=== PATIENT | male | born 1995 | race Caucasian/White ===

== ENCOUNTER 2018-11-04 12:42 | Emergency (ER) | payer BC ==
--- NOTE | 2018-11-04 15:01 | ED ---
Neck Pain - HPI Summary HPI Summary: Patient complains of right-sided neck pain and right-sided head pain 1.5 weeks denies trauma. Admits to sinus congestion, but states neck pain started before sinus congestion started. Denies fever, cough, CP, SOB, N/V/D, abdominal pain, change in urine, change in BM. Medical history is none. - History of Current Complaint Chief Complaint: EDNeckComplaint Stated Complaint: NECK PAIN,HEAD PAIN Time Seen by Provider: 11/04/18 14:41 Hx Obtained From: Patient Onset/Duration Of Injury/Symptoms: Weeks Mechanism Of Injury: No Known Trauma Timing: Constant Onset/Duration: Started weeks ago Severity Initially: Moderate Severity Currently: Moderate Pain Intensity: 7 Pain Scale Used: 0-10 Numeric Location: Discrete At: Character: Aching Aggravating Factors: Movement Alleviating Factors: OTC Meds Associated Signs & Symptoms: Positive: Negative - Allergies/Home Medications Allergies/Adverse Reactions: Allergies Allergy/AdvReac Type Severity Reaction Status Date / Time No Known Allergies Allergy Verified 11/04/18 14:31 PMH/Surg Hx/FS Hx/Imm Hx Endocrine/Hematology History: Denies: Hx Anticoagulant Therapy Cardiovascular History: Denies: Hx Pacemaker/ICD History: Denies: Hx Dialysis Sensory History: Denies: Hx Legally Blind Opthamlomology History: Denies: Hx Eye Prosthesis EENT History: Denies: Hx Deafness Neurological History: Denies: Hx Dementia Psychiatric History: Denies: Hx Autism Infectious Disease History: No Infectious Disease History: Denies: Traveled Outside the [place] in Last 30 Days - Family History Known Family History: Positive: Unknown - Social History Alcohol Use: Occasionally Substance Use Type: Reports: None Smoking Status (MU): Never Smoked Tobacco Review of Systems Constitutional: Negative Eyes: Negative ENT: Negative Cardiovascular: Negative Respiratory: Negative Gastrointestinal: Negative Musculoskeletal: Other Skin: Negative Positive: Headache Psychological: Normal All Other Systems Reviewed And Are Negative: Yes Physical Exam - Summary Physical Exam Summary: Neck supple. Neuro exam normal. Tenderness to palpation along right side sternocleidomastoid muscle. Triage Information Reviewed: Yes Vital Signs On Initial Exam: Initial Vitals Temp Pulse Resp BP Pulse Ox 98.6 F 53 18 142/88 99 11/04/18 12:45 11/04/18 12:45 11/04/18 12:45 11/04/18 12:45 11/04/18 12:45 Vital Signs Reviewed: Yes Appearance: Positive: Well-Appearing Skin: Positive: Warm Head/Face: Positive: Normal Head/Face Inspection Eyes: Positive: Normal ENT: Positive: Normal ENT inspection Neck: Positive: Supple Respiratory/Lung Sounds: Positive: Clear to Auscultation Cardiovascular: Positive: Normal Abdomen Description: Positive: Nontender Musculoskeletal: Positive: Normal Neurological: Positive: Normal Psychiatric: Positive: Normal AVPU Assessment: Alert - [place] Coma Scale Best Eye Response: 4 - Spontaneous Best Motor Response: 6 - Obeys Commands Best Verbal Response: 5 - Oriented Coma Scale Total: 15 Diagnostics - Vital Signs Vital Signs Temp Pulse Resp BP Pulse Ox 11/04/18 12:45 98.6 F 53 18 142/88 99 - Laboratory Lab Statement: Any lab studies that have been ordered have been reviewed, and results considered in the medical decision making process. Neck Course/Dx - Course Course Of Treatment: Patient complains of right-sided neck pain and right-sided head pain 1.5 weeks denies trauma. Admits to sinus congestion, but states neck pain started before sinus congestion started. Denies fever, cough, CP, SOB , N/V/D, abdominal pain, change in urine, change in BM. Medical history is none. Physical exam:Neck supple. Neuro exam normal. Tenderness to palpation along right side sternocleidomastoid muscle. ENT exam unremarkable. While signs within normal limits. Diagnosis muscle spasm. Rx for Valium 5 mg by mouth. - Diagnoses Provider Diagnoses: Muscle spasm, Headache Discharge - Sign-Out/Discharge Documenting (check all that apply): Patient Departure Patient Received Moderate/Deep Sedation with Procedure: No - Discharge Plan Condition: Stable Disposition: HOME Prescriptions: Diazepam TAB(*) [Valium TAB(*)] 5 mg PO TID PRN 2 Days #6 tab MDD 3 tabs PRN Reason: Pain Patient Education Materials: Muscle Spasm (ED) Referrals: No Primary Care Phys,NOPCP [Primary Care Provider] - Additional Instructions: Take Valium as prescribed. Beware medication can make you drowsy do not drive or operate machinery while on this medication. Follow-up with primary care. Return to the ED for any new or worsening symptoms. - Billing Disposition and Condition Condition: STABLE Disposition: Home
[2018-11-04 15:12] VITALS: BP 134/77
== END 2018-11-04 15:08 | disposition home or self-care (01) ==
LOC: ED 12:42
DX: M62.838 Other muscle spasm (principal); R51 Headache; M54.2 Cervicalgia; R09.81 Nasal congestion
CPT/HCPCS: 99282